=== PATIENT | male | born 1960 | race Caucasian/White ===

== ENCOUNTER 2016-03-29 05:39 | Day surgery (SDC) | payer OTHER ==
[2016-03-22 13:48] VITALS: BMI 30.7
[2016-03-29] MEDS ORDERED: ONDANSETRON 4 MG/2 ML VIAL IVPUSH PRN (06:02)
--- NOTE | 2016-03-29 06:51 | HP ---
Admitting History and Physical - Admission History of Present Illness: patient is a 55 y/o male with a past medical history of depression, vertigo and hypertension. Patient presents for ECT, his last ECT was 03/08/16. Patient reports feeling well, he reports that his abilify was changed to mirapax. He reports a decrease in depressive symptoms since starting ECT. He denies any recent hospitalizations or illness. 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 Cardiovascular: Yes: HTN - Smoking History Smoking history: Never smoked Have you smoked in the past 12 months: No - Alcohol/Substance Use Hx Alcohol Use: No (NO ALCOHOL/COCAINE IN 18 MONTHS/2013) History of Substance Use: reports: None - Social History ADL: Independent History of Recent Travel: No Home Medications - Allergies Allergies/Adverse Reactions: Allergies Allergy/AdvReac Type Severity Reaction Status Date / Time No Known Allergies Allergy Verified 04/01/15 09:47 - Home Medications Home Medications: Ambulatory Orders Estazolam 1 mg PO HS 06/15/14 Lamotrigine [Lamictal] 150 mg PO BID 07/19/14 Quetiapine Fumarate [Seroquel] 200 tab PO BID 09/15/15 Lisinopril 5 mg PO DAILY 10/13/15 Lurasidone HCl [Latuda] 40 mg PO DAILY 03/08/16 Pramipexole Di-HCl [Mirapex] 0.5 mg PO TID 03/29/16 Family Disease History - Family Disease History Family History: Unremarkable Review of Systems - Review of Systems Constitutional: reports: No Symptoms Eyes: reports: No Symptoms HENT: reports: No Symptoms Neck: reports: No Symptoms Cardiovascular: reports: No Symptoms Respiratory: reports: No Symptoms Gastrointestinal: reports: No Symptoms Genitourinary: reports: No Symptoms Musculoskeletal: reports: No Symptoms Integumentary: reports: No Symptoms Neurological: reports: No Symptoms Endocrine: reports: No Symptoms Hematology/Lymphatic: reports: No Symptoms Psychiatric: reports: No Symptoms Physical Examination Vital Signs: Vital Signs Temperature 98.0 F 03/29/16 06:39 Pulse Rate 74 03/29/16 06:39 Respiratory Rate 18 03/29/16 06:39 Blood Pressure 146/96 03/29/16 06:39 O2 Sat by Pulse Oximetry (%) 97 03/29/16 06:39 Constitutional: Yes: Well Nourished, No Distress, Calm Eyes: Yes: WNL, Conjunctiva Clear, EOM Intact HENT: Yes: WNL, Atraumatic, Normocephalic Neck: Yes: WNL, Supple, Trachea Midline Cardiovascular: Yes: WNL, Regular Rate and Rhythm, S1, S2 Respiratory: Yes: WNL, Regular, CTA Bilaterally Gastrointestinal: Yes: WNL, Normal Bowel Sounds, Soft ...Rectal Exam: Yes: Deferred Renal/: Yes: WNL. No: CVA Tenderness - Left, CVA Tenderness - Right Musculoskeletal: Yes: WNL Extremities: Yes: WNL Edema: No Peripheral Pulses WNL: Yes Peripheral Pulses: Left Radial: 4+, Right Radial: 4+, Left Doralis Pedis: 3+, Right Dorsalis Pedis: 3+, Left Femoral: 3+, Right Femoral: 3+ Integumentary: Yes: WNL Neurological: Yes: WNL, Alert, Oriented ...Motor Strength: WNL Psychiatric: Yes: WNL, Alert, Oriented Labs: reviewed 02/23 Imaging - Results EKG: Image Reviewed (nsr no ischemic changes), Other Assessment/Plan pt is a 55 y/o male that presents for ECT, pt has received ect in the past, he denies any adverse reaction to anesthesia. labs and ekg reviewed pt is low risk for ect informed consent, risks/benefits to be obtained by Dr Muse
[2016-03-29 08:09] VITALS: TEMP 98.1
[2016-03-29 08:25] VITALS: BP 143/78; PULSE 78
== END 2016-03-29 08:20 | disposition home or self-care (01) ==
LOC: FECT 05:39
PROVIDERS: ATTEND Psychiatry & Neurology Psychiatry
PROC: GZB4ZZZ Other Electroconvulsive Therapy (ICD-10-PCS; principal; 2016-03-29 07:15)
DX: F33.1 Major depressive disorder, recurrent, moderate (principal)
CPT/HCPCS: 90870; 94760

== ENCOUNTER 2016-04-18 05:36 | Day surgery (SDC) | payer OTHER ==
[2016-04-13 14:11] VITALS: BMI 30.7
[2016-04-18 07:44] VITALS: TEMP 98.2
[2016-04-18 09:00] VITALS: BP 128/84; PULSE 66
== END 2016-04-18 08:20 | disposition home or self-care (01) ==
LOC: FECT 05:36
PROVIDERS: ATTEND Psychiatry & Neurology Psychiatry
PROC: GZB4ZZZ Other Electroconvulsive Therapy (ICD-10-PCS; principal; 2016-04-18 08:00)
DX: F33.1 Major depressive disorder, recurrent, moderate (principal)
CPT/HCPCS: 90870; 94760

== ENCOUNTER 2016-05-10 05:37 | Day surgery (SDC) | payer OTHER ==
[2016-05-02 09:34] VITALS: BMI 30.7
[2016-05-10] MEDS ORDERED: ONDANSETRON 4 MG/2 ML VIAL IVPUSH PRN (06:47)
--- NOTE | 2016-05-10 06:53 | HP ---
Admitting History and Physical - Admission History of Present Illness: patient is 55 y/o male with a past of depression, vertigo, and hypertension. patient presents for ECT, his last ECT was 04/18/16. he reports feeling well, denies any recent illness or hospitalizations, patient reports an improvement in depression since starting ECT. patient reports compliance with prescribed medications. 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 Cardiovascular: Yes: HTN - Smoking History Smoking history: Never smoked Have you smoked in the past 12 months: No - Alcohol/Substance Use Hx Alcohol Use: No (NO ALCOHOL/COCAINE IN 18 /2013) History of Substance Use: reports: None - Social History Usual Living Arrangement: Yes: Alone ADL: Independent History of Recent Travel: No Home Medications - Allergies Allergies/Adverse Reactions: Allergies Allergy/AdvReac Type Severity Reaction Status Date / Time No Known Allergies Allergy Verified 04/01/15 09:47 - Home Medications Home Medications: Ambulatory Orders Estazolam 1 mg PO HS 06/15/14 Lamotrigine [Lamictal] 150 mg PO BID 07/19/14 Quetiapine Fumarate [Seroquel] 200 tab PO BID 09/15/15 Lisinopril 5 mg PO DAILY 10/13/15 Lurasidone HCl [Latuda] 30 mg PO DAILY 03/08/16 Pramipexole Di-HCl [Mirapex] 1.5 mg PO DAILY 03/29/16 Family Disease History - Family Disease History Family History: Unremarkable Review of Systems - Review of Systems Constitutional: reports: No Symptoms Eyes: reports: No Symptoms HENT: reports: No Symptoms Neck: reports: No Symptoms Cardiovascular: reports: No Symptoms Respiratory: reports: No Symptoms Gastrointestinal: reports: No Symptoms Genitourinary: reports: No Symptoms Musculoskeletal: reports: No Symptoms Integumentary: reports: No Symptoms Neurological: reports: No Symptoms Endocrine: reports: No Symptoms Hematology/Lymphatic: reports: No Symptoms Psychiatric: reports: No Symptoms Physical Examination Vital Signs: Vital Signs Temperature 97.8 F 05/10/16 06:02 Pulse Rate 79 05/10/16 06:02 Respiratory Rate 18 05/10/16 06:02 Blood Pressure 129/96 05/10/16 06:02 O2 Sat by Pulse Oximetry (%) 100 03/02/17 06:02 Constitutional: Yes: Well Nourished, No Distress, Calm Eyes: Yes: WNL, Conjunctiva Clear, EOM Intact HENT: Yes: WNL, Atraumatic, Normocephalic Neck: Yes: WNL, Supple, Trachea Midline Cardiovascular: Yes: WNL, Regular Rate and Rhythm, S1, S2 Respiratory: Yes: WNL, Regular, CTA Bilaterally Gastrointestinal: Yes: WNL, Normal Bowel Sounds, Soft ...Rectal Exam: Yes: Deferred Breast(s): Yes: WNL Musculoskeletal: Yes: WNL Extremities: Yes: WNL Edema: No Peripheral Pulses WNL: Yes Peripheral Pulses: Left Radial: 4+, Right Radial: 4+, Left Doralis Pedis: 3+, Right Dorsalis Pedis: 3+, Left Femoral: 3+, Right Femoral: 3+ Integumentary: Yes: WNL Neurological: Yes: WNL, Alert, Oriented ...Motor Strength: WNL Psychiatric: Yes: WNL, Alert, Oriented Labs: reviewed 11/24 Imaging - Results EKG: Report Reviewed, Image Reviewed, Other (nsr no ischemic changes) Assessment/Plan pt is a 55 y/o male that presents for ect, he has received ect in the past and denies any adverse reaction to anesthesia. labs and ekg reviewed pt is low risk for ect informed consent, risks/benefits to be obtained by Dr Muse
[2016-05-10 11:20] VITALS: TEMP 99.4
[2016-05-10 11:22] VITALS: BP 139/93; PULSE 66
== END 2016-05-10 08:15 | disposition home or self-care (01) ==
LOC: FECT 05:37 → FASU 05:37 → FECT 08:15
PROVIDERS: ATTEND Psychiatry & Neurology Psychiatry
PROC: GZB4ZZZ Other Electroconvulsive Therapy (ICD-10-PCS; principal; 2016-05-10 07:15)
DX: F33.2 Major depressive disorder, recurrent severe without psychotic features (principal)
CPT/HCPCS: 90870; 94760

== ENCOUNTER 2016-06-07 05:39 | Day surgery (SDC) | payer OTHER ==
[2016-06-07 06:27] VITALS: TEMP 98.5; BMI 30.7
[2016-06-07 07:12] LABS: BASOPHIL 0.4 % (0-2.0); EOSINOPHIL 1.5 % (0-4.5); MCH 26.7 pg (25.7-33.7); MCHC 32.8 g/dl (32.0-35.9); MEAN CELL VOLUME 81.2 fl (80-96); MEAN PLT VOLUME 8.9 fl (7.5-11.1); NEUTROPHILS 60.8 % (42.8-82.8); PLATELET COUNT 190 K/MM3 (134-434); RDW 14.7 % (11.9-15.9); WHITE BLOOD COUNT 6.9 K/mm3 (4.0-10.0)
[2016-06-07 08:03] VITALS: BP 131/87; PULSE 66
--- NOTE | 2016-06-07 16:33 | EKG ---
Test Reason : Blood Pressure : / mmHG Vent. Rate : 069 BPM Atrial Rate : 069 BPM P-R Int : 162 ms QRS Dur : 086 ms QT Int : 382 ms P-R-T Axes : 030 -16 008 degrees QTc Int : 409 ms NORMAL SINUS RHYTHM INFERIOR INFARCT , AGE UNDETERMINED CANNOT RULE OUT ANTERIOR INFARCT , AGE UNDETERMINED NO PREVIOUS ECGS AVAILABLE Confirmed by MD QUIROGA MARJORY ([id number]) on 06/07/2016 4:33:25 PM Referred By: Brandyn Muse Confirmed By:BENJY QUIROGA MD
== END 2016-06-07 08:05 | disposition home or self-care (01) ==
LOC: FECT 05:39
PROVIDERS: ATTEND Psychiatry & Neurology Psychiatry
PROC: GZB4ZZZ Other Electroconvulsive Therapy (ICD-10-PCS; principal; 2016-06-07 07:15)
DX: F33.2 Major depressive disorder, recurrent severe without psychotic features (principal)
CPT/HCPCS: 36415; 80051; 85025; 90870; 93005; 94760

== ENCOUNTER 2016-07-05 05:36 | Day surgery (SDC) | payer OTHER ==
[2016-07-05 06:18] VITALS: TEMP 98
--- NOTE | 2016-07-05 06:48 | HP ---
Admitting History and Physical - Admission History of Present Illness: patient is a 56 y/o male with a past medical history of depression, vertigo and hypertension, patient presents for ECT. patient's last ect was 05/30/16. patient reports feeling well, denies any changes in medications. he denies any recent hospitalizations or illnesses. He reports an improvement in depressive symptoms since starting ECt. he denies any homicidal or suicidal ideation, visual or auditory hallucinations. 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 Cardiovascular: Yes: HTN - Smoking History Smoking history: Never smoked Have you smoked in the past 12 months: No - Alcohol/Substance Use Hx Alcohol Use: No (NO ALCOHOL/COCAINE SINCE 2013) History of Substance Use: reports: None - Social History Usual Living Arrangement: Yes: Alone ADL: Independent History of Recent Travel: No Home Medications - Allergies Allergies/Adverse Reactions: Allergies Allergy/AdvReac Type Severity Reaction Status Date / Time No Known Allergies Allergy Verified 04/01/15 09:47 - Home Medications Home Medications: Ambulatory Orders Estazolam 1 mg PO HS 06/15/14 Lamotrigine [Lamictal] 150 mg PO BID 07/19/14 Quetiapine Fumarate [Seroquel] 200 tab PO BID 09/15/15 Lisinopril 5 mg PO DAILY 10/13/15 Lurasidone HCl [Latuda] 30 mg PO DAILY 03/08/16 Pramipexole Di-HCl [Mirapex] 1.5 mg PO DAILY 03/29/16 Family Disease History - Family Disease History Family History: Unremarkable Review of Systems - Review of Systems Constitutional: reports: No Symptoms Eyes: reports: No Symptoms HENT: reports: No Symptoms Neck: reports: No Symptoms Cardiovascular: reports: No Symptoms Respiratory: reports: No Symptoms Gastrointestinal: reports: No Symptoms Genitourinary: reports: No Symptoms Breasts: reports: No Symptoms Reported Musculoskeletal: reports: No Symptoms Integumentary: reports: No Symptoms Neurological: reports: No Symptoms Endocrine: reports: No Symptoms Hematology/Lymphatic: reports: No Symptoms Psychiatric: reports: No Symptoms Physical Examination Vital Signs: Vital Signs Temperature 98.0 F 07/05/16 05:59 Pulse Rate 62 07/05/16 05:59 Respiratory Rate 18 07/05/16 05:59 Blood Pressure 137/94 07/05/16 05:59 O2 Sat by Pulse Oximetry (%) 96 04/27/17 05:59 Constitutional: Yes: Well Nourished, No Distress, Calm Eyes: Yes: WNL, Conjunctiva Clear, EOM Intact HENT: Yes: WNL, Atraumatic, Normocephalic Neck: Yes: WNL, Supple, Trachea Midline Cardiovascular: Yes: WNL, Regular Rate and Rhythm, S1, S2 Respiratory: Yes: WNL, Regular, CTA Bilaterally Gastrointestinal: Yes: WNL, Normal Bowel Sounds, Soft ...Rectal Exam: Yes: Deferred Renal/: Yes: WNL Breast(s): Yes: WNL Musculoskeletal: Yes: WNL Extremities: Yes: WNL Edema: No Peripheral Pulses WNL: No Peripheral Pulses: Left Radial: 4+, Right Radial: 4+, Left Doralis Pedis: 3+, Right Dorsalis Pedis: 3+, Left Femoral: 3+, Right Femoral: 3+ Integumentary: Yes: WNL Neurological: Yes: WNL, Alert, Oriented ...Motor Strength: WNL Psychiatric: Yes: WNL, Alert, Oriented Labs: reviewed 05/25 Imaging - Results EKG: Other (nsr) Assessment/Plan pt is a 56 y/o male that presents for ECT,he has received anesthesia in the past and denies any adverse reaction to anesthesia. labs and ekg reviewed pt is low risk for procedure informed consent, risks and benefits to be obtained by Dr Muse
[2016-07-05 08:06] VITALS: BP 133/88; PULSE 66
== END 2016-07-05 08:05 | disposition home or self-care (01) ==
LOC: FECT 05:36
PROVIDERS: ATTEND Psychiatry & Neurology Psychiatry
PROC: GZB4ZZZ Other Electroconvulsive Therapy (ICD-10-PCS; principal; 2016-07-05 07:00)
DX: F33.2 Major depressive disorder, recurrent severe without psychotic features (principal)
CPT/HCPCS: 90870; 94760

== ENCOUNTER 2016-08-17 05:41 | Day surgery (SDC) | payer OTHER ==
[2016-08-14 11:36] VITALS: BMI 30.7
--- NOTE | 2016-08-17 06:57 | HP ---
Admitting History and Physical - Admission History of Present Illness: patient is a 56 y/o male with a past medical history of depression, vertigo, and hypertension. Patient presents for ect, his last last ect was 07/05/16. He reports and increased in depressive symptoms since last month. Patient denies any suicidal ideation or homicidal ideation, visual or auditory hallucinations. patient denies any changes to medications or recent illnesses. he does reports compliance with prescribed medications. 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 Cardiovascular: Yes: HTN - Smoking History Smoking history: Never smoked Have you smoked in the past 12 months: No - Alcohol/Substance Use Hx Alcohol Use: No (NO ALCOHOL/COCAINE SINCE 2013) History of Substance Use: reports: None - Social History ADL: Independent History of Recent Travel: No Home Medications - Allergies Allergies/Adverse Reactions: Allergies Allergy/AdvReac Type Severity Reaction Status Date / Time No Known Allergies Allergy Verified 04/01/15 09:47 - Home Medications Home Medications: Ambulatory Orders Estazolam 1 mg PO HS 06/15/14 Lamotrigine [Lamictal] 150 mg PO BID 07/19/14 Quetiapine Fumarate [Seroquel] 200 tab PO BID 09/15/15 Lisinopril 5 mg PO DAILY 10/13/15 Lurasidone HCl [Latuda] 40 mg PO HS 03/08/16 Pramipexole Di-HCl [Mirapex] 1.5 mg PO HS 03/29/16 Family Disease History - Family Disease History Family History: Unremarkable Review of Systems - Review of Systems Constitutional: reports: No Symptoms Eyes: reports: No Symptoms HENT: reports: No Symptoms Neck: reports: No Symptoms Cardiovascular: reports: No Symptoms Respiratory: reports: No Symptoms Gastrointestinal: reports: No Symptoms Breasts: reports: No Symptoms Reported Musculoskeletal: reports: No Symptoms Integumentary: reports: No Symptoms Neurological: reports: No Symptoms Endocrine: reports: No Symptoms Hematology/Lymphatic: reports: No Symptoms Psychiatric: reports: Depression Physical Examination Vital Signs: Vital Signs Temperature 98.0 F 08/17/16 05:58 Pulse Rate 63 08/17/16 05:58 Respiratory Rate 18 08/17/16 05:58 Blood Pressure 133/83 08/17/16 05:58 O2 Sat by Pulse Oximetry (%) 95 08/17/16 05:58 Constitutional: Yes: Well Nourished, No Distress, Calm Eyes: Yes: WNL, Conjunctiva Clear, EOM Intact HENT: Yes: WNL, Atraumatic, Normocephalic Neck: Yes: WNL, Supple, Trachea Midline Cardiovascular: Yes: WNL, Regular Rate and Rhythm, S1, S2 Respiratory: Yes: WNL, Regular, CTA Bilaterally Gastrointestinal: Yes: WNL, Normal Bowel Sounds, Soft ...Rectal Exam: Yes: Deferred Renal/: Yes: WNL Breast(s): Yes: WNL Musculoskeletal: Yes: WNL Extremities: Yes: WNL Edema: No Peripheral Pulses WNL: Yes Peripheral Pulses: Left Radial: 4+, Right Radial: 4+, Left Doralis Pedis: 3+, Right Dorsalis Pedis: 3+, Left Femoral: 3+, Right Femoral: 3+ Integumentary: Yes: WNL Neurological: Yes: WNL, Alert, Oriented ...Motor Strength: WNL Psychiatric: Yes: WNL, Alert, Oriented Labs: reviewed 05/25 Imaging - Results EKG: Image Reviewed, Other (nsr) Assessment/Plan patient is a 56 y/o male that presents for ect, he has received ect in the past and denies any adverse reaction to anesthesia labs and ekg reviewed pt is low risk for procedure informed consent, risks/benefits to be obtained by Dr Muse
[2016-08-17 08:48] VITALS: TEMP 98.1
[2016-08-17 08:50] VITALS: BP 139/80; PULSE 79
== END 2016-08-17 08:30 | disposition home or self-care (01) ==
LOC: FECT 05:41
PROVIDERS: ATTEND Psychiatry & Neurology Psychiatry
PROC: GZB4ZZZ Other Electroconvulsive Therapy (ICD-10-PCS; principal; 2016-08-17 08:00)
DX: F33.2 Major depressive disorder, recurrent severe without psychotic features (principal)
CPT/HCPCS: 90870; 94760

== ENCOUNTER 2016-09-06 05:40 | Day surgery (SDC) | payer OTHER ==
[2016-08-29 16:40] VITALS: BMI 30.7
[2016-09-06 08:09] VITALS: BP 130/88; PULSE 76; TEMP 98
== END 2016-09-06 08:00 | disposition home or self-care (01) ==
LOC: FECT 05:40
PROVIDERS: ATTEND Psychiatry & Neurology Psychiatry
PROC: GZB4ZZZ Other Electroconvulsive Therapy (ICD-10-PCS; principal; 2016-09-06 07:30)
DX: F33.2 Major depressive disorder, recurrent severe without psychotic features (principal)
CPT/HCPCS: 90870; 94760

== ENCOUNTER 2016-10-04 05:41 | Day surgery (SDC) | payer OTHER ==
[2016-09-21 15:40] VITALS: BMI 30.7
[2016-10-04 06:31] VITALS: TEMP 97.6
--- NOTE | 2016-10-04 06:53 | HP ---
Admitting History and Physical - Admission History of Present Illness: Patient is a 56 y/o male with a past medical history of depression, vertigo, and hypertension. Patient presents for ect, his last ect was 09/06/16. Patient reports feeling well, he denies any recent hospitalizations or illnesses. He denies any changes in medications. patient denies any suicidal or homicidal ideation, visual or auditory hallucinations. 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 Cardiovascular: Yes: HTN - Smoking History Smoking history: Never smoked Have you smoked in the past 12 months: No - Alcohol/Substance Use Hx Alcohol Use: No (NO ALCOHOL/COCAINE SINCE 2013) History of Substance Use: reports: None - Social History ADL: Independent History of Recent Travel: No Home Medications - Allergies Allergies/Adverse Reactions: Allergies Allergy/AdvReac Type Severity Reaction Status Date / Time No Known Allergies Allergy Verified 08/29/16 16:38 - Home Medications Home Medications: Ambulatory Orders Estazolam 1 mg PO HS 06/15/14 Lamotrigine [Lamictal] 150 mg PO BID 07/19/14 Quetiapine Fumarate [Seroquel] 200 tab PO BID 09/15/15 Lisinopril 5 mg PO DAILY 10/13/15 Lurasidone HCl [Latuda] 40 mg PO HS 03/08/16 Pramipexole Di-HCl [Mirapex] 1.5 mg PO HS 03/29/16 Family Disease History - Family Disease History Family History: Unremarkable Review of Systems - Review of Systems Constitutional: reports: No Symptoms Eyes: reports: No Symptoms HENT: reports: No Symptoms Neck: reports: No Symptoms Cardiovascular: reports: No Symptoms Respiratory: reports: No Symptoms Gastrointestinal: reports: No Symptoms Genitourinary: reports: No Symptoms Musculoskeletal: reports: No Symptoms Integumentary: reports: No Symptoms Neurological: reports: No Symptoms Endocrine: reports: No Symptoms Hematology/Lymphatic: reports: No Symptoms Psychiatric: reports: No Symptoms Physical Examination Vital Signs: Vital Signs Temperature 97.6 F 10/04/16 06:19 Pulse Rate 66 10/04/16 06:19 Respiratory Rate 18 10/04/16 06:19 Blood Pressure 121/84 10/04/16 06:19 O2 Sat by Pulse Oximetry (%) 97 10/04/16 06:19 Constitutional: Yes: Well Nourished, No Distress, Calm Eyes: Yes: WNL, Conjunctiva Clear, EOM Intact HENT: Yes: WNL, Atraumatic, Normocephalic Neck: Yes: WNL, Supple, Trachea Midline Cardiovascular: Yes: WNL, Regular Rate and Rhythm, S1, S2 Respiratory: Yes: WNL, Regular, CTA Bilaterally Gastrointestinal: Yes: WNL, Normal Bowel Sounds, Soft ...Rectal Exam: Yes: Deferred Renal/: Yes: WNL Musculoskeletal: Yes: WNL Extremities: Yes: WNL Edema: No Peripheral Pulses WNL: No Peripheral Pulses: Left Radial: 4+, Right Radial: 4+, Left Doralis Pedis: 3+, Right Dorsalis Pedis: 3+, Left Femoral: 3+, Right Femoral: 3+ Integumentary: Yes: WNL Neurological: Yes: WNL, Alert, Oriented ...Motor Strength: WNL Psychiatric: Yes: WNL, Alert, Oriented Labs: labs reviewed 05/25 Imaging - Results EKG: Image Reviewed, Other (nsr no ischemic changes) Assessment/Plan pt is a 56 y/o male that presents for ect, he has received ect in the past and denies any adverse reaction to anesthesia. labs and ekg reviewed pt is medically optimized for procedure.
[2016-10-04] MEDS ORDERED: ONDANSETRON 4 MG/2 ML VIAL IVPUSH PRN (07:17)
[2016-10-04] MEDS ORDERED: LACTATED RINGERS SOLUTION 1,000 ML IV SCH (07:30)
[2016-10-04 08:12] VITALS: BP 123/80; PULSE 66
== END 2016-10-04 08:15 | disposition home or self-care (01) ==
LOC: FECT 05:41
PROVIDERS: ATTEND Psychiatry & Neurology Psychiatry
PROC: GZB4ZZZ Other Electroconvulsive Therapy (ICD-10-PCS; principal; 2016-10-04 07:30)
DX: F33.2 Major depressive disorder, recurrent severe without psychotic features (principal)
CPT/HCPCS: 90870; 94760

== ENCOUNTER 2016-10-25 05:37 | Day surgery (SDC) | payer OTHER ==
[2016-10-25 06:24] VITALS: BMI 32.1
[2016-10-25 08:13] VITALS: BP 128/76; PULSE 69; TEMP 98.1
[2016-10-25] MEDS ORDERED: PROMETHAZINE HCL 25 MG/1 ML VIAL IVPUSH PRN (09:37)
[2016-10-25] MEDS ORDERED: LACTATED RINGERS SOLUTION 1,000 ML IV SCH (09:45)
== END 2016-10-25 08:20 | disposition home or self-care (01) ==
LOC: FECT 05:37
PROVIDERS: ATTEND Psychiatry & Neurology Psychiatry
PROC: GZB4ZZZ Other Electroconvulsive Therapy (ICD-10-PCS; principal; 2016-10-25 07:15)
DX: F33.2 Major depressive disorder, recurrent severe without psychotic features (principal)
CPT/HCPCS: 90870; 94760

== ENCOUNTER 2016-11-15 05:39 | Day surgery (SDC) | payer OTHER ==
[2016-11-15 06:48] VITALS: TEMP 98
--- NOTE | 2016-11-15 07:02 | HP ---
Admitting History and Physical - Admission History of Present Illness: patient is a 56 y/o male with a past medical history of depression, hypertension , and vertigo. patient presents for ect, his last ect was 10/25/16. patient reports feeling well, he denies any changes in medications. patient denies any recent illnesses or hospitalizations. Patient denies any suicidal or homicidal ideation, visual or auditory hallucinations. 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 Cardiovascular: Yes: HTN - Smoking History Smoking history: Never smoked Have you smoked in the past 12 months: No - Alcohol/Substance Use Hx Alcohol Use: No (NO ALCOHOL/COCAINE SINCE 2013) History of Substance Use: reports: None - Social History ADL: Independent History of Recent Travel: No Home Medications - Allergies Allergies/Adverse Reactions: Allergies Allergy/AdvReac Type Severity Reaction Status Date / Time No Known Allergies Allergy Verified 10/25/16 06:24 - Home Medications Home Medications: Ambulatory Orders Estazolam 1 mg PO HS 06/15/14 Lamotrigine [Lamictal] 150 mg PO BID 07/19/14 Quetiapine Fumarate [Seroquel] 200 tab PO BID 09/15/15 Lisinopril 5 mg PO DAILY 10/13/15 Lurasidone HCl [Latuda] 40 mg PO HS 03/08/16 Pramipexole Di-HCl [Mirapex] 1.5 mg PO HS 03/29/16 Family Disease History - Family Disease History Family History: Denies Review of Systems - Review of Systems Constitutional: reports: No Symptoms Eyes: reports: No Symptoms HENT: reports: No Symptoms Neck: reports: No Symptoms Cardiovascular: reports: No Symptoms Respiratory: reports: No Symptoms Gastrointestinal: reports: No Symptoms Genitourinary: reports: No Symptoms Musculoskeletal: reports: No Symptoms Integumentary: reports: No Symptoms Neurological: reports: No Symptoms Endocrine: reports: No Symptoms Hematology/Lymphatic: reports: No Symptoms Psychiatric: reports: No Symptoms Physical Examination Vital Signs: Vital Signs Temperature 98.0 F 11/15/16 06:45 Pulse Rate 73 11/15/16 06:45 Respiratory Rate 18 11/15/16 06:45 Blood Pressure 142/94 11/15/16 06:45 O2 Sat by Pulse Oximetry (%) 96 11/15/16 06:45 Constitutional: Yes: Well Nourished, No Distress, Calm Eyes: Yes: WNL, Conjunctiva Clear, EOM Intact HENT: Yes: WNL, Atraumatic, Normocephalic Neck: Yes: WNL, Supple, Trachea Midline Cardiovascular: Yes: WNL, Regular Rate and Rhythm, S1, S2 Respiratory: Yes: WNL, Regular, CTA Bilaterally Gastrointestinal: Yes: WNL, Normal Bowel Sounds, Soft ...Rectal Exam: Yes: Deferred Renal/: Yes: WNL Breast(s): Yes: WNL Musculoskeletal: Yes: WNL Extremities: Yes: WNL Edema: No Peripheral Pulses WNL: Yes Peripheral Pulses: Left Radial: 4+, Right Radial: 4+, Left Doralis Pedis: 3+, Right Dorsalis Pedis: 3+, Left Femoral: 3+, Right Femoral: 3+ Integumentary: Yes: WNL Neurological: Yes: WNL, Alert, Oriented ...Motor Strength: WNL Psychiatric: Yes: WNL, Alert, Oriented Labs: reviewed labs Imaging - Results EKG: Other (nsr) Assessment/Plan patient is a 56 y/o male that presents for ect, labs and ekg pt is medically optimized for procedure informed consent, risks benefits to be obtained by Dr Muse
[2016-11-15 08:21] LABS: MCH 27.3 pg (25.7-33.7); MCHC 33.8 g/dl (32.0-35.9); MEAN CELL VOLUME 80.6 fl (80-96); PLATELET COUNT 165 K/MM3 (134-434); RDW 14.8 % (11.9-15.9)
[2016-11-15 08:32] VITALS: BP 126/88; PULSE 66
== END 2016-11-15 08:20 | disposition home or self-care (01) ==
LOC: FECT 05:39
PROVIDERS: ATTEND Psychiatry & Neurology Psychiatry
PROC: GZB4ZZZ Other Electroconvulsive Therapy (ICD-10-PCS; principal; 2016-11-15 07:15)
DX: F33.2 Major depressive disorder, recurrent severe without psychotic features (principal)
CPT/HCPCS: 36415; 85027; 90870; 94760

== ENCOUNTER 2016-12-06 05:42 | Day surgery (SDC) | payer OTHER ==
[2016-11-27 15:53] VITALS: BMI 32.1
[2016-12-06 06:50] VITALS: TEMP 98
[2016-12-06 07:32] LABS: ALBUMIN 3.8 g/dl (3.5-5.0); ALK PHOS 76 U/L (32-92); ANION GAP 7 (8-16); BILIRUBIN,TOTAL 0.6 mg/dl (0.2-1.0); CALCIUM 8.6 mg/dl (8.4-10.2); CO2 24 mmol/L (22-28); GLUCOSE,RANDOM 103 mg/dl (74-106); SGOT/AST 20 U/L (10-42); SGPT/ALT 34 U/L (10-40); TOT PROT 6.3 g/dl (6.4-8.3)
[2016-12-06 08:03] VITALS: PULSE 64
[2016-12-06 09:04] VITALS: BP 110/77
--- NOTE | 2016-12-06 10:41 | EKG ---
Test Reason : Blood Pressure : / mmHG Vent. Rate : 073 BPM Atrial Rate : 073 BPM P-R Int : 160 ms QRS Dur : 100 ms QT Int : 392 ms P-R-T Axes : 024 -15 002 degrees QTc Int : 431 ms NORMAL SINUS RHYTHM INFERIOR INFARCT (CITED ON OR BEFORE 07-JUN-2016) ABNORMAL ECG WHEN COMPARED WITH ECG OF 07-JUN-2016 05:12, NONSPECIFIC T WAVE ABNORMALITY, WORSE IN ANTEROLATERAL LEADS Confirmed by MARIAN HELM, VENKATA ([id number]) on 12/06/2016 10:40:41 AM Referred By: Brandyn Muse Confirmed By:VENKATA FONSECA MD
== END 2016-12-06 08:15 | disposition home or self-care (01) ==
LOC: FECT 05:42
PROVIDERS: ATTEND Psychiatry & Neurology Psychiatry
PROC: GZB4ZZZ Other Electroconvulsive Therapy (ICD-10-PCS; principal; 2016-12-06 07:00)
DX: F33.2 Major depressive disorder, recurrent severe without psychotic features (principal)
CPT/HCPCS: 36415; 80053; 90870; 93005; 94760

== ENCOUNTER → 2017-01-03 | Day surgery (SDC) | payer OTHER ==
[~2017-01-03] MED LIST: LACTATED RINGERS SOLUTION 1,000 ML IV SCH; ONDANSETRON 4 MG/2 ML VIAL IVPUSH PRN; PROMETHAZINE HCL 25 MG/1 ML VIAL IVPUSH PRN
--- NOTE | 2017-01-03 07:05 | HP ---
Admitting History and Physical - Admission History of Present Illness: patient is a 56 y/o male with a past medical history of hypertension, vertigo, and depression. Patient presents for ect, his last ect was 12/06/16. He reports feeling well and denies any changes in medications. Patient denies any recent illnesses or hospitalizations. Patient denies any suicidal or homicidal ideation, visual or auditory hallucinations. 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 Cardiovascular: Yes: HTN - Smoking History Smoking history: Never smoked Have you smoked in the past 12 months: No - Alcohol/Substance Use Hx Alcohol Use: No (NO ALCOHOL/COCAINE SINCE 2013) History of Substance Use: reports: None - Social History Usual Living Arrangement: Yes: Alone ADL: Independent History of Recent Travel: No Home Medications - Allergies Allergies/Adverse Reactions: Allergies Allergy/AdvReac Type Severity Reaction Status Date / Time No Known Allergies Allergy Verified 10/25/16 06:24 - Home Medications Home Medications: Ambulatory Orders Estazolam 1 mg PO HS 06/15/14 Lamotrigine [Lamictal] 150 mg PO BID 07/19/14 Quetiapine Fumarate [Seroquel] 200 tab PO BID 09/15/15 Lisinopril 5 mg PO DAILY 10/13/15 Lurasidone HCl [Latuda] 40 mg PO HS 03/08/16 Pramipexole Di-HCl [Mirapex] 1.5 mg PO HS 03/29/16 Family Disease History - Family Disease History Family History: Denies Review of Systems - Review of Systems Constitutional: reports: No Symptoms Eyes: reports: No Symptoms HENT: reports: No Symptoms Neck: reports: No Symptoms Cardiovascular: reports: No Symptoms Respiratory: reports: No Symptoms Gastrointestinal: reports: No Symptoms Genitourinary: reports: No Symptoms Musculoskeletal: reports: No Symptoms Integumentary: reports: No Symptoms Neurological: reports: No Symptoms Endocrine: reports: No Symptoms Hematology/Lymphatic: reports: No Symptoms Psychiatric: reports: No Symptoms Physical Examination Constitutional: Yes: Well Nourished, No Distress, Calm Eyes: Yes: WNL, Conjunctiva Clear, EOM Intact HENT: Yes: WNL, Atraumatic, Normocephalic Neck: Yes: WNL, Supple, Trachea Midline Cardiovascular: Yes: WNL, Regular Rate and Rhythm, S1, S2 Respiratory: Yes: WNL, Regular, CTA Bilaterally Gastrointestinal: Yes: WNL, Normal Bowel Sounds, Soft ...Rectal Exam: Yes: Deferred Renal/: Yes: WNL Breast(s): Yes: WNL Musculoskeletal: Yes: WNL Extremities: Yes: WNL Edema: No Peripheral Pulses WNL: Yes Peripheral Pulses: Left Radial: 4+, Right Radial: 4+, Left Doralis Pedis: 3+, Right Dorsalis Pedis: 3+, Left Femoral: 3+, Right Femoral: 3+ Integumentary: Yes: WNL Neurological: Yes: WNL, Alert, Oriented ...Motor Strength: WNL Psychiatric: Yes: WNL (reviewed 11/15/16), Alert, Oriented Imaging - Results EKG: Report Reviewed, Image Reviewed, Other (nsr) Assessment/Plan patient is a 56 y/o male that presents for ect, labs and ekg reviewed. patient is medically optimized for procedure informed consent, risks/benefits to be obtained by Dr Muse
[2017-01-03 07:07] VITALS: BMI 32.1
[2017-01-03 08:19] VITALS: TEMP 98.9
[2017-01-03 09:02] VITALS: BP 117/77; PULSE 61
== END | disposition home or self-care (01) ==
LOC: FECT 05:40
PROVIDERS: ATTEND Psychiatry & Neurology Psychiatry
PROC: GZB4ZZZ Other Electroconvulsive Therapy (ICD-10-PCS; principal; 2017-01-03 07:00)
DX: F33.2 Major depressive disorder, recurrent severe without psychotic features (principal)
CPT/HCPCS: 90870; 94760

== ENCOUNTER 2017-01-30 05:36 | Day surgery (SDC) | payer OTHER ==
[2017-01-29 12:09] VITALS: BMI 32.1
[2017-01-30] MEDS ORDERED: LACTATED RINGERS SOLUTION 1,000 ML IV SCH (07:45)
[2017-01-30 07:54] VITALS: BP 129/84; PULSE 78; TEMP 97.8
== END 2017-01-30 07:56 | disposition home or self-care (01) ==
LOC: FECT 05:36
PROVIDERS: ATTEND Psychiatry & Neurology Psychiatry
PROC: GZB4ZZZ Other Electroconvulsive Therapy (ICD-10-PCS; principal; 2017-01-30 07:15)
DX: F33.2 Major depressive disorder, recurrent severe without psychotic features (principal)
CPT/HCPCS: 90870; 94760

== ENCOUNTER 2017-03-07 05:46 | Day surgery (SDC) | payer OTHER ==
--- NOTE | 2017-03-07 07:02 | HP ---
Admitting History and Physical - Admission History of Present Illness: patient is a 56 y/o male with a past medical history of hypertension, hyperlipidemia, vertigo, and depression. Patient presents for ect, his last ect was 01/30/17. 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 patient reports all testing was negative. He was started on a statin for his hyperlipidemia. Patient denies any recent illnesses or hospitalizations. He denies any suicidal or homicidal ideation, visual or auditory hallucinations. 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 Cardiovascular: Yes: HTN, Hyperlipdemia - Smoking History Smoking history: Never smoked Have you smoked in the past 12 months: No - Alcohol/Substance Use Hx Alcohol Use: No (NO ALCOHOL/COCAINE SINCE 2013) History of Substance Use: reports: None - Social History Usual Living Arrangement: Yes: Alone ADL: Independent History of Recent Travel: No Home Medications - Allergies Allergies/Adverse Reactions: Allergies Allergy/AdvReac Type Severity Reaction Status Date / Time No Known Allergies Allergy Verified 03/07/17 07:06 - Home Medications Home Medications: Ambulatory Orders Estazolam 1 mg PO HS 06/15/14 Lamotrigine [Lamictal] 150 mg PO BID 07/19/14 Quetiapine Fumarate [Seroquel] 150 tab PO BID 09/15/15 Lisinopril 5 mg PO DAILY 10/13/15 Lurasidone HCl [Latuda] 40 mg PO HS 03/08/16 Pramipexole Di-HCl [Mirapex] 1.5 mg PO HS 03/29/16 Family Disease History - Family Disease History Family Disease History: Heart Disease: Father, Mother Review of Systems - Review of Systems Constitutional: reports: No Symptoms Eyes: reports: No Symptoms HENT: reports: No Symptoms Neck: reports: No Symptoms Cardiovascular: reports: No Symptoms Respiratory: reports: No Symptoms Gastrointestinal: reports: No Symptoms Genitourinary: reports: No Symptoms Musculoskeletal: reports: No Symptoms Neurological: reports: No Symptoms Endocrine: reports: No Symptoms Hematology/Lymphatic: reports: No Symptoms Psychiatric: reports: No Symptoms Physical Examination Vital Signs: Vital Signs Period Temp Pulse Resp BP Sys/Klein Pulse Ox Last 24 Hr 98.1 F 72 16 150/88 97 Constitutional: Yes: Well Nourished, No Distress, Calm Eyes: Yes: WNL, Conjunctiva Clear, EOM Intact HENT: Yes: WNL, Atraumatic, Normocephalic Neck: Yes: WNL, Supple, Trachea Midline Cardiovascular: Yes: WNL, Regular Rate and Rhythm, S1, S2 Respiratory: Yes: WNL, Regular, CTA Bilaterally Gastrointestinal: Yes: WNL, Normal Bowel Sounds, Soft ...Rectal Exam: Yes: Deferred Renal/: Yes: WNL Breast(s): Yes: WNL Musculoskeletal: Yes: WNL Extremities: Yes: WNL Edema: No Peripheral Pulses WNL: Yes Peripheral Pulses: Left Radial: 4+, Right Radial: 4+, Left Doralis Pedis: 3+, Right Dorsalis Pedis: 3+, Left Femoral: 3+, Right Femoral: 3+ Integumentary: Yes: WNL Neurological: Yes: WNL, Alert, Oriented ...Motor Strength: WNL Psychiatric: Yes: WNL, Alert, Oriented Labs: labs reviewed 11/25 Imaging - Results EKG: Image Reviewed, Other (nsr) Assessment/Plan patient is a 56 y/o male that presents for ect, labs and ekg reviewed pt is medically optimized for procedure informed consent, risk/benefits to be obtained by Dr Mues
[2017-03-07 07:03] VITALS: TEMP 98.1; BMI 33.4
[2017-03-07] MEDS ORDERED: oxyCODONE HCL 5 MG TABLET PO PRN (08:03)
[2017-03-07] MEDS ORDERED: ONDANSETRON 4 MG/2 ML VIAL IVPUSH PRN (08:03)
[2017-03-07] MEDS ORDERED: LACTATED RINGERS SOLUTION 1,000 ML IV SCH (08:15)
[2017-03-07 09:12] VITALS: BP 125/88; PULSE 88
== END 2017-03-07 09:05 | disposition home or self-care (01) ==
LOC: FECT 05:46
PROVIDERS: ATTEND Psychiatry & Neurology Psychiatry
PROC: GZB4ZZZ Other Electroconvulsive Therapy (ICD-10-PCS; principal; 2017-03-07 07:30)
DX: F33.2 Major depressive disorder, recurrent severe without psychotic features (principal)
CPT/HCPCS: 90870; 94760

== ENCOUNTER 2017-04-04 05:35 | Day surgery (SDC) | payer OTHER ==
[2017-04-04 06:31] VITALS: TEMP 97.9; BMI 33.0
[2017-04-04] MEDS ORDERED: LACTATED RINGERS SOLUTION 1,000 ML IV SCH (07:15)
[2017-04-04 08:07] VITALS: PULSE 67
[2017-04-04 08:20] VITALS: BP 139/79
== END 2017-04-04 08:25 | disposition home or self-care (01) ==
LOC: FECT 05:35
PROVIDERS: ATTEND Psychiatry & Neurology Psychiatry
PROC: GZB4ZZZ Other Electroconvulsive Therapy (ICD-10-PCS; principal; 2017-04-04 07:00)
DX: F33.2 Major depressive disorder, recurrent severe without psychotic features (principal)
CPT/HCPCS: 90870; 94760

== ENCOUNTER → 2017-06-06 | Day surgery (SDC) | payer OTHER ==
[2017-06-06 06:53] VITALS: BP 144/85; PULSE 63; TEMP 97.8; BMI 33.2
[2017-06-06 08:02] LABS: BASO % 0.4 % (0-2.0); EOS % 2.8 % (0-4.5); HEMATOCRIT 40.6 % (35.4-49); HEMOGLOBIN 13.6 GM/dl (11.7-16.9); LYMPH % 25.4 % (8-40); MCHC 33.6 g/dl (32.0-35.9); MEAN CELL VOLUME 80.5 fl (80-96); MEAN PLT VOLUME 9.2 fl (7.5-11.1); MONO % 7.1 % (3.8-10.2); NEUT % 64.3 % (42.8-82.8); PLATELET COUNT 185 K/MM3 (134-434); RBC 5.04 M/mm3 (4.00-5.60); RDW 13.6 % (11.9-15.9)
[2017-06-06 09:17] LABS: ALBUMIN 3.5 g/dl (3.5-5.0); ALK PHOS 78 U/L (32-92); ANION GAP 9 (8-16); BLOOD UREA NITROGEN 18 mg/dl (7-18); CHLORIDE 105 mmol/L (98-107); CO2 24 mmol/L (22-28); CREATININE 0.9 mg/dl (0.6-1.3); GLUCOSE,RANDOM 97 mg/dl (74-106); POTASSIUM 3.8 mmol/L (3.5-5.1); SGOT/AST 23 U/L (10-42); SGPT/ALT 39 U/L (10-40); SODIUM 138 mmol/L (136-145); TOT PROT 5.9 g/dl (6.4-8.3)
[2017-06-06 09:25] LABS: BILIRUBIN,TOTAL < 0.5 mg/dl (0.2-1.0)
== END | disposition home or self-care (01) ==
LOC: FASU 05:38
PROVIDERS: ATTEND Psychiatry & Neurology Psychiatry
PROC: GZB4ZZZ Other Electroconvulsive Therapy (ICD-10-PCS; principal; 2017-06-06)
DX: F33.2 Major depressive disorder, recurrent severe without psychotic features (principal); Z53.09 Procedure and treatment not carried out because of other contraindication
CPT/HCPCS: 36415; 80053; 85025

== ENCOUNTER 2017-06-27 05:46 | Day surgery (SDC) | payer OTHER ==
[2017-06-27 06:31] VITALS: BMI 33.5
--- NOTE | 2017-06-27 07:08 | HP ---
Admitting History and Physical - Admission History of Present Illness: Patient is a 57 y/o male with a past medical history of bipolar disorder, htn, hld, and vertigo. patient presents for ect, patient last ect was 05/02/17. patient reports completing 10 days of abx and 2 weeks of prednisione for bronchitis last month. He reports feeling much improved, denies any cough, chest pain, fever or shortness of breath. Patient denies any suicidal or homicidal ideation, visual or auditory hallucinations. 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 Cardiovascular: Yes: HTN, Hyperlipdemia - Smoking History Smoking history: Never smoked Have you smoked in the past 12 months: No - Alcohol/Substance Use Hx Alcohol Use: No (NO ALCOHOL/COCAINE SINCE 2013) History of Substance Use: reports: None - Social History ADL: Independent History of Recent Travel: No Home Medications - Allergies Allergies/Adverse Reactions: Allergies Allergy/AdvReac Type Severity Reaction Status Date / Time No Known Allergies Allergy Verified 05/23/17 16:45 - Home Medications Home Medications: Ambulatory Orders Estazolam 1 mg PO HS 06/15/14 Lamotrigine [Lamictal] 150 mg PO BID 07/19/14 Lisinopril 5 mg PO HS 10/13/15 Lurasidone HCl [Latuda] 40 mg PO HS 03/08/16 Pramipexole Di-HCl [Mirapex] 1.5 mg PO HS 03/29/16 Rosuvastatin Calcium [Crestor] 5 mg PO HS 04/04/17 Family Disease History - Family Disease History Family Disease History: Heart Disease: Father, Mother Review of Systems - Review of Systems Constitutional: reports: No Symptoms Eyes: reports: No Symptoms HENT: reports: No Symptoms Neck: reports: No Symptoms Cardiovascular: reports: No Symptoms Respiratory: reports: No Symptoms Gastrointestinal: reports: No Symptoms Genitourinary: reports: No Symptoms Musculoskeletal: reports: No Symptoms Integumentary: reports: No Symptoms Neurological: reports: No Symptoms Endocrine: reports: No Symptoms Hematology/Lymphatic: reports: No Symptoms Psychiatric: reports: No Symptoms Physical Examination Vital Signs: Vital Signs Temperature 97.8 F 06/27/17 06:26 Pulse Rate 67 06/27/17 06:26 Respiratory Rate 18 06/27/17 06:26 Blood Pressure 138/95 06/27/17 06:26 O2 Sat by Pulse Oximetry (%) 94 L 06/27/17 06:26 Constitutional: Yes: Well Nourished, No Distress, Calm, Obese Eyes: Yes: WNL, Conjunctiva Clear, EOM Intact HENT: Yes: WNL, Atraumatic, Normocephalic Neck: Yes: WNL, Supple, Trachea Midline Cardiovascular: Yes: WNL, Regular Rate and Rhythm, S1, S2 Respiratory: Yes: WNL, Regular, CTA Bilaterally Gastrointestinal: Yes: WNL, Normal Bowel Sounds, Soft ...Rectal Exam: Yes: Deferred Renal/: Yes: WNL Breast(s): Yes: WNL Musculoskeletal: Yes: WNL Extremities: Yes: WNL Edema: No Peripheral Pulses WNL: Yes Peripheral Pulses: Left Radial: 4+, Right Radial: 4+, Left Doralis Pedis: 3+, Right Dorsalis Pedis: 3+, Left Femoral: 3+, Right Femoral: 3+ Integumentary: Yes: WNL Neurological: Yes: WNL, Alert, Oriented ...Motor Strength: WNL Psychiatric: Yes: WNL, Alert, Oriented Labs: reviewed 05/26 Imaging - Results EKG: Other (nsr) Other: Other (cardiac cath 02/24 lad 30% lession) Assessment/Plan patient is a 57 y/o male that presents for ect, labs and ekg reviewed patient is medically optimized for procedure informed consent, risks/benefits to be obtained by Dr Muse.
[2017-06-27 08:51] VITALS: TEMP 98
[2017-06-27 08:52] VITALS: BP 122/82; PULSE 62
== END 2017-06-27 08:50 | disposition home or self-care (01) ==
LOC: FECT 05:46
PROVIDERS: ATTEND Psychiatry & Neurology Psychiatry
PROC: GZB4ZZZ Other Electroconvulsive Therapy (ICD-10-PCS; principal; 2017-06-27 07:45)
DX: F33.2 Major depressive disorder, recurrent severe without psychotic features (principal)
CPT/HCPCS: 90870; 94760